=== PATIENT | female | born 1985 | race Caucasian/White ===

== ENCOUNTER → 2017-01-19 | Outpatient (CLI) | payer BC ==
[2017-01-19 17:11] LABS: HEMOGLOBIN 11.4 gm/dl (12.3-15.3); RED BLOOD COUNT 3.85 M/UL (4.00-5.10); WHITE BLOOD COUNT 7.2 K/UL (4.5-11.0)
[2017-01-19 17:33] LABS: BUN/CREATININE RATIO 25 (0-10)
== END ==
LOC: LAB 15:41
PROVIDERS: Nurse Practitioner
DX: R10.9 Unspecified abdominal pain (principal); F41.0 Panic disorder [episodic paroxysmal anxiety]
CPT/HCPCS: 36415; 80053; 80061; 83036; 84436; 84443; 84480; 84703; 85025

== ENCOUNTER → 2021-12-04 | Outpatient (CLI) | payer BC ==
[~2021-12-04] MED LIST: ULTRAM50 MG PO
[2021-12-05 08:16] LABS: ALPHA-1-ANTITRYPSIN, SERUM 158 mg/dL (100-188); HBSAG SCREEN Negative (Negative); HEP A AB, IGM Negative (Negative); HEP B CORE AB, IGM Negative (Negative); HEP C VIRUS AB <0.1 (0.0-0.9)
[2021-12-05 15:12] LABS: MITOCHONDRIAL (M2) ANTIBODY <20.0 Units (0.0-20.0)
== END ==
LOC: RAD 11:34
PROVIDERS: Nurse Practitioner Primary Care
DX: R94.5 Abnormal results of liver function studies (principal); R10.84 Generalized abdominal pain
CPT/HCPCS: 36415; 74018; 76705; 80074; 80076; 82103; 82728; 83540; 83550; 86038